=== PATIENT | male | born 1965 | race Caucasian/White ===

== ENCOUNTER 2016-09-07 07:46 | Day surgery (SDC) | payer OTHER ==
[~2016-09-07] VITALS: Ht 172.7 cm; Wt 115.7 kg
[~2016-09-07 07:46] MED LIST: ADULT LOW DOSE81 M1 PO; ADVIL,NUPRIN,M200 MG PO; AMITRIPTYLINE H10 MG PO; ASPIR-LOW81 MG PO; B-12500 MC1 SL; BUTALB-APAP-CA1 EACH PO; CELEBREX200 MG PO; DILAUDID2 MG PO; ELAVIL10 MG PO; FORTAMET1000 M1 PO; GLIMEPIRIDE2 MG PO; HYDROMORPHONE HC4 MG PO; IMDUR30 MG PO; IMDUR60 MG PO; ISOSORBIDE MONO60 MG PO; LIPITOR20 MG PO; LIPITOR40 MG PO; LISINOPRIL; LISINOPRIL10 MG PO; LOPRESSOR25 MG PO; LORTAB; METFORMIN HCL500 M1 PO; MULTI VITAMIN1 EACH PO; OMEPRAZOLE40 M1 PO; PERCOCET 5/31 TABLET PO; PRILOSEC; PRILOSEC20 MG PO; PRILOSEC40 MG PO; PRINIVIL10 MG PO; PRINIVIL20 MG PO; PROPRANOLOL HCL60 MG PO; TOPROL XL25 MG PO; WELLBUTRIN; WELLBUTRIN SR150 MG PO; WELLBUTRIN SR200 MG PO
[2016-09-07 08:10] LABS: POINT-OF-CARE METER ID UU14174212
== END 2016-09-07 09:35 | disposition home or self-care (01) ==
LOC: PAIN 07:46 → SDC 09:00 → PAIN 09:00
PROVIDERS: Anesthesiology Pain Medicine
DX: M47.892 Other spondylosis, cervical region (principal); M54.12 Radiculopathy, cervical region; F41.1 Generalized anxiety disorder; M50.00 Cervical disc disorder with myelopathy, unspecified cervical region; E78.5 Hyperlipidemia, unspecified; I10 Essential (primary) hypertension; M12.88 Other specific arthropathies, not elsewhere classified, other specified site; E11.9 Type 2 diabetes mellitus without complications; K21.9 Gastro-esophageal reflux disease without esophagitis
CPT/HCPCS: 82948; J1030; J2250; J3010; S0020

== ENCOUNTER 2016-12-02 07:03 | Day surgery (SDC) | payer OTHER ==
[~2016-12-02] VITALS: Ht 172.7 cm; Wt 112.3 kg
[2016-12-02] MEDS ORDERED: WELLBUTRIN SR200 MG PO (07:22)
[2016-12-02 07:29] LABS: POINT-OF-CARE METER ID UU14174212
== END 2016-12-02 09:22 | disposition home or self-care (01) ==
LOC: PAIN 07:03 → SDC 07:45 → PAIN 09:22
PROVIDERS: Anesthesiology Pain Medicine
DX: M50.11 Cervical disc disorder with radiculopathy, high cervical region (principal); M50.01 Cervical disc disorder with myelopathy, high cervical region; I10 Essential (primary) hypertension; E11.9 Type 2 diabetes mellitus without complications; K21.9 Gastro-esophageal reflux disease without esophagitis; M54.16 Radiculopathy, lumbar region; E66.9 Obesity, unspecified; Z68.37 Body mass index [BMI] 37.0-37.9, adult; Z88.0 Allergy status to penicillin; Z79.84 Long term (current) use of oral hypoglycemic drugs; Z79.899 Other long term (current) drug therapy; Z79.891 Long term (current) use of opiate analgesic
CPT/HCPCS: 82948; J1030; S0020

== ENCOUNTER 2017-01-10 07:52 | Day surgery (SDC) | payer OTHER ==
[~2017-01-10] VITALS: Ht 172.7 cm; Wt 111.3 kg
[2017-01-10 11:45] LABS: POINT-OF-CARE METER ID UU14174212
== END 2017-01-10 12:52 | disposition home or self-care (01) ==
LOC: PAIN 07:52
PROVIDERS: Anesthesiology Pain Medicine
PROC: 01513ZZ Destruction of Cervical Nerve, Percutaneous Approach (ICD-10-PCS; principal; 2017-01-10)
DX: M47.12 Other spondylosis with myelopathy, cervical region (principal); F41.9 Anxiety disorder, unspecified; M50.00 Cervical disc disorder with myelopathy, unspecified cervical region; M54.16 Radiculopathy, lumbar region; M79.1 Myalgia; M25.511 Pain in right shoulder; E11.9 Type 2 diabetes mellitus without complications; Z79.899 Other long term (current) drug therapy; K21.9 Gastro-esophageal reflux disease without esophagitis; F32.9 Major depressive disorder, single episode, unspecified; E66.9 Obesity, unspecified; Z68.37 Body mass index [BMI] 37.0-37.9, adult; Z79.84 Long term (current) use of oral hypoglycemic drugs
CPT/HCPCS: 82948; J1030; J2250; J3010; S0020

== ENCOUNTER → 2017-02-11 | Outpatient (CLI) | payer OTHER ==
[~2017-02-11] VITALS: Ht 175.3 cm; Wt 110.2 kg
[~2017-02-11] MED LIST changes: +ATIVAN1 MG PO
[2017-02-11 07:54] LABS: POINT-OF-CARE METER ID UU14174212
[2017-02-11 10:28] LABS: POINT-OF-CARE METER ID UU13113819
== END | disposition home or self-care (01) ==
LOC: AMB 11-19 11:30
PROVIDERS: Internal Medicine
DX: Z12.11 Encounter for screening for malignant neoplasm of colon (principal); D12.4 Benign neoplasm of descending colon; K62.1 Rectal polyp; K29.70 Gastritis, unspecified, without bleeding; K64.8 Other hemorrhoids; I25.10 Atherosclerotic heart disease of native coronary artery without angina pectoris; I10 Essential (primary) hypertension; E11.9 Type 2 diabetes mellitus without complications; Z88.0 Allergy status to penicillin; K21.9 Gastro-esophageal reflux disease without esophagitis; Z79.84 Long term (current) use of oral hypoglycemic drugs; Z81.8 Family history of other mental and behavioral disorders; Z82.49 Family history of ischemic heart disease and other diseases of the circulatory system; Z80.1 Family history of malignant neoplasm of trachea, bronchus and lung; Z82.3 Family history of stroke; E78.5 Hyperlipidemia, unspecified; E66.9 Obesity, unspecified; Z68.35 Body mass index [BMI] 35.0-35.9, adult
CPT/HCPCS: 82948; 88305; 88342 TC; 93005; J2250; J3010

== ENCOUNTER 2017-07-14 10:20 | Day surgery (SDC) | payer OTHER ==
[~2017-07-14] VITALS: Ht 172.7 cm; Wt 114.8 kg
[~2017-07-14 10:20] MED LIST changes: -FORTAMET1000 M1 PO; +GLUCOPHAGE500 MG PO; -PRINIVIL20 MG PO; +STOOL SOFTENER240 MG PO
[2017-07-14 10:53] LABS: POINT-OF-CARE METER ID UU14174212
== END 2017-07-14 12:36 | disposition home or self-care (01) ==
LOC: PAIN 10:20 → SDC 11:30 → PAIN 11:30
PROVIDERS: Anesthesiology Pain Medicine
DX: M47.26 Other spondylosis with radiculopathy, lumbar region (principal); M54.5 Low back pain; M50.00 Cervical disc disorder with myelopathy, unspecified cervical region; I25.10 Atherosclerotic heart disease of native coronary artery without angina pectoris; I10 Essential (primary) hypertension; M47.22 Other spondylosis with radiculopathy, cervical region; E78.5 Hyperlipidemia, unspecified; M79.1 Myalgia; E66.9 Obesity, unspecified; Z68.38 Body mass index [BMI] 38.0-38.9, adult; E11.9 Type 2 diabetes mellitus without complications; K21.9 Gastro-esophageal reflux disease without esophagitis; Z79.84 Long term (current) use of oral hypoglycemic drugs; Z88.0 Allergy status to penicillin
CPT/HCPCS: 82948; J1030; J2250; J3010; S0020

== ENCOUNTER 2017-10-04 17:03 | Observation (INO) | payer OTHER ==
[~2017-10-04] VITALS: Ht 172.7 cm; Wt 107.1 kg
[2017-10-04 17:17] LABS: HEMATOCRIT 48.4 % (38.0-50.0); HEMOGLOBIN 16.5 G/DL (12.5-16.6); MCH 29.9 PG (29.0-34.0); MCHC 34.1 G/DL (30.0-36.0); MCV 87.8 FL (86-99); PLATELET COUNT 368 K/uL (156-360); RBC DIS.WIDTH-CV 12.5 % (11.8-14.6); RBC DIS.WIDTH-SD 40.7 % (39-53); RED BLOOD COUNT 5.51 M/uL (4.00-5.50)
[2017-10-04 17:28] LABS: CHLORIDE 106 mEq/L (99-109); POTASSIUM 4.3 mEq/L (3.7-5.4); SODIUM 140 mEq/L (136-147)
[2017-10-04 17:30] LABS: GLUCOSE 95 mg/dL (70-99)
[2017-10-04 17:34] LABS: CREATININE 1.1 mg/dL (0.6-1.3); GFR ESTIMATE (CALCULATED) > 59 mL/min/ (58.99-99999)
[2017-10-04 17:35] LABS: UREA NITROGEN (BUN) 15 mg/dL (9-23)
[2017-10-04 17:37] LABS: TROP-I INTERPRETATION NEGATIVE; TROPONIN-I < 0.01 ng/mL (0.0-0.30)
[2017-10-04] MEDS ORDERED: ENDOCET 5-3251 EACH PO (18:27)
[2017-10-04] MEDS ORDERED: METOPROLOL SUCC25 MG PO (18:28)
[2017-10-04] MEDS ORDERED: OMEPRAZOLE20 MG PO (18:28)
[2017-10-04] MEDS ORDERED: CELECOXIB200 MG PO (18:29)
[2017-10-04] MEDS ORDERED: LISINOPRIL10 MG PO (18:30)
[2017-10-04] MEDS ORDERED: STOOL SOFTENER250 MG PO (18:31)
[2017-10-04] MEDS ORDERED: LO-DOSE ASPIRIN81 M2 PO (18:38)
[2017-10-04 22:05] LABS: ALBUMIN 4.7 g/dL (3.2-4.8)
[2017-10-04 22:08] LABS: TOTAL PROTEIN 7.8 g/dL (6.4-8.3)
[2017-10-04 22:09] LABS: TOTAL BILIRUBIN 0.8 mg/dL (0.0-1.0)
[2017-10-04 22:10] LABS: ALKALINE PHOSPHATASE 67 IU/L (3-129)
[2017-10-04 22:13] LABS: AST (GOT) 42 IU/L (2-34); DIRECT BILIRUBIN 0.3 mg/dL (0.0-0.3)
[2017-10-04 22:14] LABS: ALT (GPT) 54 IU/L (3-49); LIPASE 54 U/L (1.0-51.0)
[2017-10-04 22:21] VITALS: BP 140/76
[2017-10-04 22:30] VITALS: BP 128/76
[2017-10-04 23:22] LABS: THYROTROPIN (TSH) 1.4 MIU/L (0.4-5.5)
[2017-10-04 23:42] LABS: TROP-I INTERPRETATION NEGATIVE; TROPONIN-I < 0.01 ng/mL (0.0-0.30)
[2017-10-05 04:07] VITALS: BP 96/53
[2017-10-05 05:33] LABS: HEMATOCRIT 44.5 % (38.0-50.0); HEMOGLOBIN 14.7 G/DL (12.5-16.6); MCH 29.5 PG (29.0-34.0); MCV 89.2 FL (86-99); PLATELET COUNT 342 K/uL (156-360); RBC DIS.WIDTH-CV 12.8 % (11.8-14.6); RBC DIS.WIDTH-SD 41.9 % (39-53); RED BLOOD COUNT 4.99 M/uL (4.00-5.50); TROP-I INTERPRETATION NEGATIVE; TROPONIN-I < 0.01 ng/mL (0.0-0.30); WHITE BLOOD COUNT 9.6 K/uL (4.1-10.2)
[2017-10-05 05:57] LABS: CHLORIDE 103 MEQ/L (99-109); GFR ESTIMATE (CALCULATED) > 59 mL/min/ (58.99-99999); GLUCOSE 83 mg/dL (70-99); POTASSIUM 4.3 MEQ/L (3.7-5.4); SODIUM 141 MEQ/L (136-147); UREA NITROGEN (BUN) 14 mg/dL (9-23)
[2017-10-05 09:01] VITALS: BP 125/77
[2017-10-05 11:34] VITALS: BP 108/61
[2017-10-05 15:34] VITALS: BP 116/65
[2017-10-05 15:44] LABS: BENZODIAZEPINES, URINE SCREEN Negative (200 ng/mL)
[2017-10-05 20:04] VITALS: BP 136/68
[2017-10-06 00:43] VITALS: BP 137/75
[2017-10-06 04:19] VITALS: BP 146/74
[2017-10-06 12:56] VITALS: BP 136/86
[2017-10-06 20:16] VITALS: BP 154/82
[2017-10-06 23:43] VITALS: BP 131/77
[2017-10-07 03:34] VITALS: BP 119/58
[2017-10-07 08:26] VITALS: BP 115/71
[2017-10-07] MEDS ORDERED: AMLODIPINE BESYL5 MG PO (10:51)
== END 2017-10-07 11:34 | disposition home or self-care (01) ==
LOC: EME 17:03 → EDOF 21:08 → 5WEST 21:08 → ENRESERV 21:14 → 5WEST 22:03 → ENPENDDIS 10-07 10:58 → 5WEST 10-07 11:34
PROVIDERS: Emergency Medicine; Hospitalist
DX: R07.89 Other chest pain (principal); I25.10 Atherosclerotic heart disease of native coronary artery without angina pectoris; T82.858A Stenosis of other vascular prosthetic devices, implants and grafts, initial encounter; Z95.5 Presence of coronary angioplasty implant and graft; I10 Essential (primary) hypertension; D17.79 Benign lipomatous neoplasm of other sites; E11.9 Type 2 diabetes mellitus without complications; E66.9 Obesity, unspecified; Z68.35 Body mass index [BMI] 35.0-35.9, adult; E78.5 Hyperlipidemia, unspecified; Z91.19 Patient's noncompliance with other medical treatment and regimen; Z87.820 Personal history of traumatic brain injury; G89.29 Other chronic pain; F41.9 Anxiety disorder, unspecified; F31.9 Bipolar disorder, unspecified; R51 Headache; M54.2 Cervicalgia; Z90.49 Acquired absence of other specified parts of digestive tract; Z88.0 Allergy status to penicillin; Z80.0 Family history of malignant neoplasm of digestive organs; Z82.0 Family history of epilepsy and other diseases of the nervous system; Z80.1 Family history of malignant neoplasm of trachea, bronchus and lung
CPT/HCPCS: 70496; 70498; 71045; 71275; 76705; 78452; 80048; 80076; 80306 90; 82948; 83690; 84443; 84484; 85027; 85379; 93005; 93017; 99281; 99285; A9500; C1769; C1887; G0378; J1644; J1650; J2250; J2270; J2405; J3010; J7040